=== PATIENT | female | born 1990 | race African-American/Black ===

== ENCOUNTER 2021-02-25 11:24 | Emergency (ER) | payer MEDICAID ==
[~2021-02-25] VITALS: Ht 167.6 cm; Wt 86.0 kg
[2021-02-25] MEDS ORDERED: BACITRACIN ZINC OINT UDPKT TOP ONE (13:15)
[2021-02-25] MEDS ORDERED: LIDOCAINE HCL/PF 1% 10 MG/ML 5ML VIAL IJ ONE (13:15)
[2021-02-25] MEDS ORDERED: ACETAMINOPHEN 325MG TABLET PO ONE (14:45)
[2021-02-25] MEDS ORDERED: CEPH500C2 MT (14:46)
[2021-02-25] MEDS ORDERED: ACET650T37 PO (14:46)
[2021-02-25 15:03] VITALS: BP 127/87
== END 2021-02-25 15:05 | disposition home or self-care (01) ==
LOC: ER 11:24
DX: O26.892 Other specified pregnancy related conditions, second trimester (principal); S61.303A Unspecified open wound of left middle finger with damage to nail, initial encounter; Z3A.21 21 weeks gestation of pregnancy; W01.0XXA Fall on same level from slipping, tripping and stumbling without subsequent striking against object, initial encounter; Y93.89 Activity, other specified; Y92.018 Other place in single-family (private) house as the place of occurrence of the external cause
CPT/HCPCS: 11730; 76805; 99284; J3490